=== PATIENT | male | born 1950 | race Caucasian/White ===

== ENCOUNTER 2016-09-30 21:54 | Inpatient (IN) | payer MEDICARE, OTHER ==
[~2016-09-30] VITALS: Ht 175.3 cm; Wt 95.7 kg
[~2016-09-30 21:54] MED LIST: AMLO5TAB4 PO; FLUD0.1T PO; INSU100C5 SQ-INSULIN; INSU100V8 SQ; MECL25TA PO; TADA2.5T PO
[2016-09-30] MEDS ORDERED: SODIUM CHLORIDE FLUSH 10ML SYR IVF ONE (22:00)
[2016-09-30] MEDS ORDERED: SODIUM CHLORIDE 0.9% 1,000ML IVBOLUS ONE (22:00)
[2016-09-30] MEDS ORDERED: LABETALOL 20 MG/4 ML ONE (22:11)
[2016-09-30 22:25] LABS: BLOOD UREA NITROGEN 37 mg/dL (7-18)
[2016-09-30] MEDS ORDERED: LABETALOL 5MG/ML, 20ML IVPush ONE (22:30)
[2016-09-30] MEDS ORDERED: NITROGLYCERIN SINGLE TAB 0.4 MG SL ONE ×2 (22:30→22:57)
[2016-09-30 22:33] LABS: ASPARTATE AMINO TRANSFERASE 20 U/L (15-37)
[2016-09-30 22:34] LABS: IS PT STATUS REG ER OR PRE ER? YES
[2016-09-30] MEDS ORDERED: ASPIRIN 325 MG TABLET ONE (22:56)
[2016-09-30] MEDS ORDERED: ASPIRIN 325 MG TABLET PO ONE (23:00)
[2016-09-30 23:59] VITALS: BP 190/112
[2016-10-01] VITALS (7 sets, daily range): BP systolic 165–208; BP diastolic 84–125
[2016-10-01] MEDS ORDERED: DOCUSATE 100 MG CAPSULE PO PRN
[2016-10-01] MEDS ORDERED: LABETALOL 5MG/ML, 20ML IV PRN
[2016-10-01] MEDS ORDERED: ACETAMINOPHEN 325 MG TABLET PO PRN
[2016-10-01] MEDS: SODIUM CHLORIDE 0.9% 1,000 ML IV SCH ×3 (00:54→17:04)
[2016-10-01] MEDS: ASPIRIN 81 MG TABLET EC PO SCH (05:37)
[2016-10-01 05:49] LABS: ASPARTATE AMINO TRANSFERASE 18 U/L (15-37); BLOOD UREA NITROGEN 33 mg/dL (7-18)
[2016-10-01] MEDS: HEPARIN 5,000 UNITS/ML, 1ML SQ SCH ×2 (10:33→17:04)
[2016-10-01] MEDS: SIMVASTATIN 20 MG TABLET PO SCH (20:58)
[2016-10-01] MEDS: hydrALAzine 20 MG/ML, 1ML IV PRN (21:04)
[2016-10-02 01:06] VITALS: BP 180/90
[2016-10-02] MEDS: SODIUM CHLORIDE 0.9% 1,000 ML IV SCH (01:38)
[2016-10-02] MEDS: HEPARIN 5,000 UNITS/ML, 1ML SQ SCH ×3 (01:43→17:25)
[2016-10-02] MEDS: ASPIRIN 81 MG TABLET EC PO SCH (04:54)
[2016-10-02 05:57] LABS: BLOOD UREA NITROGEN 27 mg/dL (7-18)
[2016-10-02 06:53] VITALS: BP 212/117
[2016-10-02] MEDS: hydrALAzine 20 MG/ML, 1ML IV PRN ×2 (06:54→12:34)
[2016-10-02] MEDS: AMLODIPINE 5 MG TABLET PO SCH (08:54)
[2016-10-02 12:34] VITALS: BP 182/83
[2016-10-02] MEDS: INSULIN ASPART 100 UNITS/ML, PEN SQ-INSULIN SCH ×3 (12:34→21:00)
[2016-10-02] MEDS ORDERED: ONDANSETRON 2MG/ML, 2ML IVPush PRN (14:00)
[2016-10-02 18:51] VITALS: BP 139/75
[2016-10-02] MEDS: SIMVASTATIN 20 MG TABLET PO SCH (21:18)
[2016-10-02] MEDS ORDERED: SODIUM CHLORIDE 0.9% 1,000 ML IV SCH (23:48)
[2016-10-03 00:46] VITALS: BP 165/84
[2016-10-03] MEDS: HEPARIN 5,000 UNITS/ML, 1ML SQ SCH ×3 (02:40→18:17)
[2016-10-03] MEDS: ASPIRIN 81 MG TABLET EC PO SCH (05:35)
[2016-10-03] MEDS: INSULIN ASPART 100 UNITS/ML, PEN SQ-INSULIN SCH ×4 (07:00→20:37)
[2016-10-03] MEDS: AMLODIPINE 5 MG TABLET PO SCH (09:06)
[2016-10-03 09:17] VITALS: BP 163/89
[2016-10-03 13:20] VITALS: BP 168/91
[2016-10-03] MEDS: METOPROLOL TARTRATE 25 MG TABLET PO SCH (18:17)
[2016-10-03 19:06] VITALS: BP 167/88
[2016-10-03] MEDS: SIMVASTATIN 20 MG TABLET PO SCH (20:37)
[2016-10-04] MEDS: HEPARIN 5,000 UNITS/ML, 1ML SQ SCH ×3 (01:10→17:31)
[2016-10-04 01:15] VITALS: BP 167/94
[2016-10-04 05:02] VITALS: BP 164/93
[2016-10-04] MEDS: ASPIRIN 81 MG TABLET EC PO SCH (05:04)
[2016-10-04 05:58] LABS: BLOOD UREA NITROGEN 25 mg/dL (7-18)
[2016-10-04] MEDS: INSULIN ASPART 100 UNITS/ML, PEN SQ-INSULIN SCH ×3 (07:00→17:31)
[2016-10-04 08:09] VITALS: BP 166/96
[2016-10-04] MEDS: METOPROLOL TARTRATE 25 MG TABLET PO SCH ×2 (09:04→17:31)
[2016-10-04] MEDS: AMLODIPINE 5 MG TABLET PO SCH (09:04)
[2016-10-04 14:59] VITALS: BP 130/76
[2016-10-04] MEDS ORDERED: METO25TA35 PO (16:11)
[2016-10-04] MEDS ORDERED: ASPI-621 PO (16:11)
[2016-10-04] MEDS ORDERED: SIMV20TA3 PO (16:11)
== END 2016-10-04 18:18 | DRG 64 ==
LOC: ED 22:03 → EDIP 22:49 → 4WST 23:55
PROVIDERS: ADMIT Hospitalist; ATTEND Hospitalist
DX: I63.9 Cerebral infarction, unspecified (principal); N17.0 Acute kidney failure with tubular necrosis; E44.1 Mild protein-calorie malnutrition; I16.9 Hypertensive crisis, unspecified; G81.94 Hemiplegia, unspecified affecting left nondominant side; R47.1 Dysarthria and anarthria; R47.01 Aphasia; E11.22 Type 2 diabetes mellitus with diabetic chronic kidney disease; R25.2 Cramp and spasm; D72.829 Elevated white blood cell count, unspecified; N18.3 Chronic kidney disease, stage 3 (moderate); I12.9 Hypertensive chronic kidney disease with stage 1 through stage 4 chronic kidney disease, or unspecified chronic kidney disease; R29.707 NIHSS score 7; Z83.3 Family history of diabetes mellitus; Z80.42 Family history of malignant neoplasm of prostate; Z72.0 Tobacco use; Z79.82 Long term (current) use of aspirin; Z91.14 Patient's other noncompliance with medication regimen; Z68.31 Body mass index [BMI] 31.0-31.9, adult
CPT/HCPCS: 36415; 70450; 70544; 70547; 70551; 76770; 80047; 80048; 80053; 80061; 80307; 81001; 82962; 83036; 83735; 84484; 85025; 85610; 85730; 93005; 93306; 93880; 96374; J1644; J1815; J2405; 92523-GN; J0360; J7030